=== PATIENT | male | born 1970 | race Hispanic/Latino ===

== ENCOUNTER → 2019-10-15 | Outpatient (CLI) | payer OTHER ==
--- NOTE | 2019-10-15 10:39 | Diagnostic Imaging Report ---
MRI of the right shoulder without contrast. History: Shoulder pain. Impingement. Decreased range of motion. Pain not responding to conservative management Comparison: None Technique: Coronal PD FS, sagital PD FS, and axial PD and PD FS. Findings: Rotator cuff: Rotator cuff tendinosis with mid substance degeneration and small mid substance/articular sided partial tear involving the anterior fibers of the supraspinatus tendon at the humeral insertion site best seen on coronal image 11. Additionally, there is mild infraspinatus and subscapularis tendinosis. The teres minor tendon is intact. Osseous acromion complex: Type II acromion with mild lateral downsloping. Moderate degenerative arthrosis at the acromioclavicular joint with undersurface spurring and narrowing of the supraspinatus tendon outlet. Glenohumeral joint: Degeneration and fraying of the labrum. The articular cartilage surfaces are intact. The humeral head is well-seated in the glenoid fossa. Biceps tendon: Intra-articular biceps tendinosis with fraying of the biceps anchor. Other findings: Negative for muscle denervation or osseous fracture. Impression: Rotator cuff tendinosis with mid substance degeneration and small mid substance/articular sided partial tear involving the anterior fibers of the supraspinatus tendon at the humeral insertion site. Moderate degenerative arthrosis at the acromioclavicular joint with undersurface spurring and narrowing of the supraspinatus tendon outlet. Intra-articular biceps tendinosis with fraying of the biceps anchor. Signed by: Dr. Romero Green M.D. on 10/15/2019 10:35 AM
== END ==
LOC: MRI 09:09
PROVIDERS: ATTEND Orthopaedic Surgery
DX: M75.41 Impingement syndrome of right shoulder (principal); S43.421A Sprain of right rotator cuff capsule, initial encounter